=== PATIENT | male | born 2005 | race Caucasian/White ===

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

== ENCOUNTER 2025-01-07 07:29 | Emergency (ER) | payer OTHER ==
[~2025-01-07] VITALS: Ht 177.8 cm; Wt 49.5 kg
[2025-01-07] MEDS ORDERED: otc cold medicine (07:35)
[2025-01-07 08:10] LABS: SOFIA COVID ANTIGEN POSITIVE (NEGATIVE)
[2025-01-07] MEDS: ONDANSETRON 4MG ORAL DISINTEGRATING TAB PO ONE (09:01)
[2025-01-07] MEDS: BENZONATATE 100 MG CAPSULE PO ONE (09:01)
[2025-01-07] MEDS ORDERED: BENZ200C70 PO (09:21)
[2025-01-07] MEDS ORDERED: ONDA-282 PO (09:21)
[2025-01-07 09:30] VITALS: BP 114/70; TEMP 99.3; O2SAT 95
== END 2025-01-07 09:38 | disposition home or self-care (01) ==
LOC: M ED 07:29
DX: U07.1 COVID-19 (principal); R05.9 Cough, unspecified; R11.0 Nausea; F90.9 Attention-deficit hyperactivity disorder, unspecified type; Z79.899 Other long term (current) drug therapy